=== PATIENT | female | born 1950 | race Native Hawaiian/Other Pacific Islander ===

== ENCOUNTER 2016-06-27 08:30 | Outpatient (CLI) | payer OTHER ==
[~2016-06-27 08:30] MED LIST: ACET7.5T70 PO; AMOX500T5 PO; AMOX875T8 PO; CYAN100010 IM; DICL1GEL2 TOP; DULO30CA OR; HYDR10TA47 PO; LORA0.5T17 PO; LORA1TAB17 PO; METO25TA4 PO; NEXIUM40 M1 PO; OMEP40CA PO; REQUIP XL2 MG PO; ROBAXIN-750750 MG PO; TOLT4CAP2 PO; TOVIAZ8 MG PO; UNITH DIRECT150 MCG PO
== END 2016-06-27 19:30 | disposition home or self-care (01) ==
LOC: RAD 08:30
DX: R07.81 Pleurodynia (principal); M85.88 Other specified disorders of bone density and structure, other site

== ENCOUNTER 2017-11-06 07:58 | Outpatient (CLI) | payer OTHER | END 2017-11-06 21:16 | disposition home or self-care (01) | LOC: RAD 07:58 | DX: J20.9 Acute bronchitis, unspecified (principal) ==

== ENCOUNTER 2017-12-13 09:33 | Outpatient (CLI) | payer OTHER ==
[2017-12-13 10:19] LABS: PLATELET COUNT 187 K/uL (152-353)
[2017-12-13 10:49] LABS: POTASSIUM 4.5 mmol/L (3.6-5.2)
== END 2017-12-13 10:33 | disposition home or self-care (01) ==
LOC: RESP 09:33
PROVIDERS: Family Medicine
DX: I10 Essential (primary) hypertension (principal)
CPT/HCPCS: 36415; 80053; 80061; 81000; 82306; 83036; 83735; 84439; 84443; 84550; 85027; 93005

== ENCOUNTER 2018-06-18 07:30 | Outpatient (CLI) | payer OTHER | END 2018-06-18 20:18 | disposition home or self-care (01) | LOC: RAD 07:30 | DX: M79.643 Pain in unspecified hand (principal) ==

== ENCOUNTER 2018-09-16 07:35 | Outpatient (CLI) | payer OTHER | END 2018-09-16 08:02 | disposition short-term general hospital (02) | LOC: AMB 07:35 | DX: K62.89 Other specified diseases of anus and rectum (principal); R10.2 Pelvic and perineal pain | CPT/HCPCS: A0425; A0427 ==

== ENCOUNTER 2019-04-20 14:02 | Emergency (ER) | payer OTHER ==
[~2019-04-20] VITALS: Ht 165.1 cm; Wt 102.1 kg
[2019-04-20 14:16] VITALS: TEMP 97.9
[2019-04-20 17:12] VITALS: BP 142/77
== END 2019-04-20 17:12 | disposition home or self-care (01) ==
LOC: ED 14:02
DX: M48.56XD Collapsed vertebra, not elsewhere classified, lumbar region, subsequent encounter for fracture with routine healing (principal)
CPT/HCPCS: 99283

== ENCOUNTER 2019-07-17 22:23 | Emergency (ER) | payer OTHER ==
[~2019-07-17] VITALS: Ht 165.1 cm; Wt 99.8 kg
[2019-07-17] MEDS ORDERED: LISI5TAB10 PO (22:48)
[2019-07-17] MEDS ORDERED: HYDRALAZINE25 MG PO (22:48)
[2019-07-18 01:26] VITALS: BP 122/80; TEMP 98.9
== END 2019-07-18 01:28 | disposition home or self-care (01) ==
LOC: ED 22:23
DX: S39.012A Strain of muscle, fascia and tendon of lower back, initial encounter (principal); S70.01XA Contusion of right hip, initial encounter; V86.95XA Unspecified occupant of 3- or 4- wheeled all-terrain vehicle (ATV) injured in nontraffic accident, initial encounter; Y92.89 Other specified places as the place of occurrence of the external cause
CPT/HCPCS: 99283; J1885

== ENCOUNTER 2020-04-24 10:29 | Outpatient (CLI) | payer OTHER ==
[~2020-04-24 10:29] MED LIST changes: +HYDRALAZINE25 MG PO; +LISI5TAB10 PO
[2020-04-24 11:55] LABS: PLATELET COUNT 224 K/uL (152-353)
[2020-04-24 12:38] LABS: POTASSIUM 4.3 mmol/L (3.6-5.2)
== END 2020-04-24 21:54 | disposition home or self-care (01) ==
LOC: RAD 10:29
PROVIDERS: ATTEND Family Medicine
DX: M54.89 Other dorsalgia (principal); R10.9 Unspecified abdominal pain
CPT/HCPCS: 36415; 80053; 81000; 85027

== ENCOUNTER 2020-08-17 08:59 | Outpatient (CLI) | payer OTHER | END 2020-08-17 19:34 | disposition home or self-care (01) | LOC: MAMMO 08:59 | PROVIDERS: ATTEND Family Medicine | DX: Z12.31 Encounter for screening mammogram for malignant neoplasm of breast (principal) ==

== ENCOUNTER 2021-01-26 12:26 | Emergency (ER) | payer OTHER ==
[~2021-01-26] VITALS: Ht 165.1 cm; Wt 106.6 kg
[2021-01-26 14:20] VITALS: BP 156/89; TEMP 98.2
== END 2021-01-26 14:26 | disposition home or self-care (01) ==
LOC: ED 12:26
PROC: 2W3DX1Z Immobilization of Left Lower Arm using Splint (ICD-10-PCS; principal; 2021-01-26)
DX: M25.532 Pain in left wrist (principal); M10.9 Gout, unspecified
CPT/HCPCS: 96374; 96375; 99284; J1885; J2930

== ENCOUNTER 2021-07-25 10:45 | Emergency (ER) | payer OTHER ==
[~2021-07-25] VITALS: Ht 165.1 cm; Wt 106.6 kg
[2021-07-25 10:45] VITALS: TEMP 98.5
[2021-07-25 11:30] LABS: PLATELET COUNT 192 K/uL (152-353)
[2021-07-25 11:38] LABS: POTASSIUM 3.9 mmol/L (3.6-5.2)
[2021-07-25 11:40] LABS: PARTIAL THROMBOPLASTIN TIME 23.8 SECONDS (24.5-33.6)
[2021-07-25 12:15] VITALS: BP 165/80
== END 2021-07-25 12:15 | disposition short-term general hospital (02) ==
LOC: ED 10:45
PROVIDERS: Hospitalist
PROC: 0T9B70Z Drainage of Bladder with Drainage Device, Via Natural or Artificial Opening (ICD-10-PCS; principal; 2021-07-25)
DX: I61.0 Nontraumatic intracerebral hemorrhage in hemisphere, subcortical (principal); I10 Essential (primary) hypertension; R29.6 Repeated falls; Z11.52 Encounter for screening for COVID-19; Z79.899 Other long term (current) drug therapy; Z51.81 Encounter for therapeutic drug level monitoring
CPT/HCPCS: 51702; 80053; 80320; 81000; 82550; 83880; 84484; 85027; 85610; 85730; 87077; 87086; 87088; 87186; 87635; 93005; 96374; 96375; 99285; J2405; U0003

== ENCOUNTER 2021-08-16 14:27 | Emergency (ER) | payer OTHER ==
[~2021-08-16] VITALS: Ht 165.1 cm; Wt 101.6 kg
[2021-08-16 14:35] VITALS: TEMP 98.5
[2021-08-16 15:05] LABS: PLATELET COUNT 172 K/uL (152-353)
[2021-08-16 15:11] LABS: POTASSIUM 4.4 mmol/L (3.6-5.2)
[2021-08-16 15:28] VITALS: BP 130/81
== END 2021-08-16 15:32 | disposition home or self-care (01) ==
LOC: ED 14:27
PROVIDERS: Emergency Medicine
DX: I95.89 Other hypotension (principal)
CPT/HCPCS: 36415; 80048; 85027; 96360; 99284

== ENCOUNTER 2021-08-24 07:50 | Emergency (ER) | payer OTHER ==
[~2021-08-24] VITALS: Ht 165.1 cm; Wt 101.6 kg
[2021-08-24 07:55] VITALS: TEMP 97.7
[2021-08-24 08:07] VITALS: BP 148/81
== END 2021-08-24 08:24 | disposition home or self-care (01) ==
LOC: ED 07:50
DX: I10 Essential (primary) hypertension (principal)
CPT/HCPCS: 99282

== ENCOUNTER 2021-08-24 08:37 | Outpatient (CLI) | payer OTHER ==
[2021-08-24 10:03] LABS: PLATELET COUNT 193 K/uL (152-353)
[2021-08-24 10:05] LABS: POTASSIUM 4.1 mmol/L (3.6-5.2)
== END 2021-08-24 18:52 | disposition home or self-care (01) ==
LOC: LABW 08:37
PROVIDERS: ATTEND Family Medicine
DX: J44.9 Chronic obstructive pulmonary disease, unspecified (principal); R53.83 Other fatigue; I10 Essential (primary) hypertension; R73.03 Prediabetes; E03.8 Other specified hypothyroidism; E78.00 Pure hypercholesterolemia, unspecified; E55.9 Vitamin D deficiency, unspecified; M25.50 Pain in unspecified joint; K21.9 Gastro-esophageal reflux disease without esophagitis
CPT/HCPCS: 36415; 80053; 80061; 81000; 82306; 83036; 83735; 84439; 84443; 84550; 85027; 93005

== ENCOUNTER 2021-10-19 09:46 | Outpatient (CLI) | payer OTHER ==
[~2021-10-19 09:46] MED LIST changes: +ALPR0.5T24 PO; +AMLODIPINE BESYLATE PO; +BYSTOLIC10 MG PO; +ESOMEPRAZOLE MA40 M1 PO; +GABA100C2 PO; +LISI20TA11 PO; +MELOXICAM7.5 MG PO; +TRAZ50TA36 PO; +VITAMIN D5000 UNIT PO
== END 2021-10-19 19:21 | disposition home or self-care (01) ==
LOC: RAD 09:46
PROVIDERS: ATTEND Family Medicine
DX: M54.59 Other low back pain (principal)

== ENCOUNTER 2021-11-14 10:34 | Outpatient (CLI) | payer OTHER | END 2021-11-14 19:20 | disposition home or self-care (01) | LOC: MRI 10:34 | PROVIDERS: ATTEND Family Medicine | DX: M54.50 Low back pain, unspecified (principal); S32.000A Wedge compression fracture of unspecified lumbar vertebra, initial encounter for closed fracture; X58.XXXA Exposure to other specified factors, initial encounter; Y92.89 Other specified places as the place of occurrence of the external cause ==

== ENCOUNTER 2022-03-16 13:42 | Emergency (ER) | payer OTHER ==
[~2022-03-16] VITALS: Ht 165.1 cm; Wt 89.4 kg
[2022-03-16 14:01] VITALS: TEMP 98.2
[2022-03-16 15:50] VITALS: BP 114/68
== END 2022-03-16 15:54 | disposition home or self-care (01) ==
LOC: ED 13:42
PROC: 2W3LX1Z Immobilization of Right Lower Extremity using Splint (ICD-10-PCS; principal; 2022-03-16)
DX: S82.091A Other fracture of right patella, initial encounter for closed fracture (principal); S41.111A Laceration without foreign body of right upper arm, initial encounter; S60.222A Contusion of left hand, initial encounter; W01.0XXA Fall on same level from slipping, tripping and stumbling without subsequent striking against object, initial encounter; Y92.098 Other place in other non-institutional residence as the place of occurrence of the external cause
CPT/HCPCS: 96372; 99283; J1885

== ENCOUNTER 2022-04-02 08:11 | Outpatient (CLI) | payer OTHER | END 2022-04-02 19:34 | disposition home or self-care (01) | LOC: RAD 08:11 | PROVIDERS: ATTEND Family Medicine | DX: R05.9 Cough, unspecified (principal) ==

== ENCOUNTER 2022-04-18 08:58 | Outpatient (CLI) | payer OTHER | END 2022-04-18 21:33 | disposition home or self-care (01) | LOC: RAD 08:58 | PROVIDERS: ATTEND Family Medicine | DX: Z78.0 Asymptomatic menopausal state (principal); M85.88 Other specified disorders of bone density and structure, other site ==

== ENCOUNTER 2022-05-07 10:25 | Outpatient (CLI) | payer OTHER | END 2022-05-07 20:35 | disposition home or self-care (01) | LOC: RAD 10:25 | PROVIDERS: ATTEND Family Medicine | DX: M25.512 Pain in left shoulder (principal); M25.511 Pain in right shoulder ==

== ENCOUNTER 2022-05-22 10:59 | Day surgery (SDC) | payer OTHER ==
[~2022-05-22] VITALS: Ht 165.1 cm; Wt 68.0 kg
== END 2022-05-22 14:30 ==
LOC: OR 10:59
PROVIDERS: ATTEND Internal Medicine Gastroenterology
PROC: 0DB68ZX Excision of Stomach, Via Natural or Artificial Opening Endoscopic, Diagnostic (ICD-10-PCS; principal; 2022-05-22)
PROC: 0DB88ZX Excision of Small Intestine, Via Natural or Artificial Opening Endoscopic, Diagnostic (ICD-10-PCS; 2022-05-22)
PROC: 0D738ZZ Dilation of Lower Esophagus, Via Natural or Artificial Opening Endoscopic (ICD-10-PCS; 2022-05-22)
DX: K21.00 Gastro-esophageal reflux disease with esophagitis, without bleeding (principal); K22.2 Esophageal obstruction; K25.9 Gastric ulcer, unspecified as acute or chronic, without hemorrhage or perforation; K29.00 Acute gastritis without bleeding; K31.84 Gastroparesis; K44.9 Diaphragmatic hernia without obstruction or gangrene; R13.19 Other dysphagia; R10.13 Epigastric pain; K22.4 Dyskinesia of esophagus
CPT/HCPCS: J2001; J2704; J7120

== ENCOUNTER 2022-07-24 09:03 | Outpatient (CLI) | payer OTHER | END 2022-07-24 19:18 | disposition home or self-care (01) | LOC: RESP 09:03 | PROVIDERS: ATTEND Family Medicine | DX: J44.9 Chronic obstructive pulmonary disease, unspecified (principal) ==

== ENCOUNTER 2022-08-14 09:16 | Emergency (ER) | payer OTHER ==
[~2022-08-14] VITALS: Ht 165.1 cm; Wt 99.8 kg
[2022-08-14 09:21] VITALS: BP 72/42; TEMP 98.9
[2022-08-14 10:06] LABS: PLATELET COUNT 188 K/uL (152-353)
== END 2022-08-14 17:46 | disposition short-term general hospital (02) ==
LOC: ED 09:16
PROVIDERS: Internal Medicine
DX: N19 Unspecified kidney failure (principal)
CPT/HCPCS: 36415; 80053; 81002; 83880; 85027; 96361; 96365; 96366; 96375; 99285; J1265; J2405

== ENCOUNTER 2022-09-27 10:09 | Outpatient (CLI) | payer OTHER ==
[2022-09-27 10:26] LABS: PLATELET COUNT 232 K/uL (152-353)
[2022-09-27 10:57] LABS: POTASSIUM 3.8 mmol/L (3.6-5.2)
== END 2022-09-27 18:58 | disposition home or self-care (01) ==
LOC: LABW 10:09
PROVIDERS: ATTEND Family Medicine
DX: I10 Essential (primary) hypertension (principal); Z87.898 Personal history of other specified conditions; F41.8 Other specified anxiety disorders; G47.00 Insomnia, unspecified; M10.9 Gout, unspecified; G89.4 Chronic pain syndrome; E55.9 Vitamin D deficiency, unspecified; Z79.899 Other long term (current) drug therapy; Z09 Encounter for follow-up examination after completed treatment for conditions other than malignant neoplasm
CPT/HCPCS: 36415; 80053; 81002; 82306; 83735; 84439; 84443; 84550; 85027